=== PATIENT | female | born 1980 | race Caucasian/White ===

== ENCOUNTER 2017-01-22 08:10 | Emergency (ER) | payer OTHER ==
[2017-01-22 08:32] VITALS: BP 122/70; PULSE 82; RESP 14; TEMP 98.6; O2SAT 98
--- NOTE | 2017-01-22 08:55 | UCPHY ---
H & P Time Seen by Provider: 01/22/17 08:25 Patient Type: New HPI/ROS: 36-year-old female presents complaining of left ankle pain, she states she slipped on a child's toy on the stairs falling. She states she has pain with weight-bearing Review of systems As per HPI General no fever no chills no weakness HEENT no eye pain no eye discharge. No eye redness, no sore throat Respiratory no cough, no shortness of breath Cardiac no chest pain, no peripheral edema GI no abdominal pain, no diarrhea, no constipation, no nausea, no vomiting no flank pain, no hematuria, no dysuria Musculoskeletal no myalgias, positive joint pain Heme no easy bruising, no easy bleeding Endo no polyuria, no polydipsia Skin no rashes, no pruritus Neuro no syncope, no dizziness, no headaches Psych is no suicidal ideation, no homicidal ideation Past Medical/Surgical History: Noncontributory Social History: Works as a [employer] Alcohol socially, denies drug use Smoking Status: Unknown if ever smoked Physical Exam: 36-year-old female alert and oriented no acute distress nontoxic appearance Alert and oriented in no acute distress nontoxic appearance, afebrile Atraumatic normocephalic Neck no JVD Lungs clear to auscultation, no respiratory distress Heart regular rate and rhythm Extremities no cyanosis clubbing edema Left ankle with soft tissue swelling at lateral malleolus and tenderness to palpation just inferior to lateral malleolus with mild ecchymosis No laxity, good capillary refill good dorsalis pedis Knee full range of motion no tenderness at lateral aspect of fibula Constitutional: Initial Vital Signs Temperature (C) 37 C 01/22/17 08:24 Heart Rate 82 01/22/17 08:24 Respiratory Rate 14 01/22/17 08:24 Blood Pressure 122/70 H 01/22/17 08:24 O2 Sat (%) 98 01/22/17 08:24 O2 Delivery Mode Room Air Allergies/Adverse Reactions: hydrocodone bitartrate [From Vicodin] Allergy (Verified 01/22/17 08:26) NAUSEA/VOMITTING Home Medications: Medication Instructions Recorded [facility] 01/22/17 Medical Decision Making - Diagnostics Imaging: X-ray positive soft tissue swelling negative for fracture ED Course/Re-evaluation: Patient seen and evaluated for left ankle pain X-ray positive soft tissue swelling negative fracture Impression Acute ankle sprain Plan Follow up with primary care physician Departure - Departure Disposition: Home, Routine, Self-Care Clinical Impression: Left ankle sprain Condition: Good Instructions: Ankle Sprain (ED) Additional Instructions: Wear the boot for 2-3 days until improved while walking. If no improvement in one week follow up with either your doctor or with the Orthopaedic doctor integration architect Dr Marcus or the doctor of your choosing. Return here if any other problems Referrals: Samir Marcus MD [Medical Doctor] - As per Instructions Austin Wesley MD [Primary Care Provider] - As per Instructions - PQRS PQRS Measurement: na
== END 2017-01-22 09:16 | disposition home or self-care (01) ==
LOC: CED 08:10
DX: S93.402A Sprain of unspecified ligament of left ankle, initial encounter (principal); W18.31XA Fall on same level due to stepping on an object, initial encounter
CPT/HCPCS: 73610-PO; 99203-PO; G0463-PO; L4386